=== PATIENT | male | born 1995 | race American Indian/Alaskan Native ===

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

== ENCOUNTER 2018-04-11 02:41 | Emergency (ER) | payer OTHER ==
[2018-04-11] MEDS ORDERED: DiphenhydrAMINE 50 mg/ml Inj IM STA (02:48)
[2018-04-11] MEDS ORDERED: DiphenhydrAMINE 50 mg/ml Inj ONE (02:59)
--- NOTE | 2018-04-11 04:18 | C.PDOC ---
History Of Present Illness 22 year old male presents to the ED complaining of urticarial rash ongoing for the last 2-3 days. Denies any use of new products, new medications, or dietary changes. Reports he felt the hives tonight mostly on his buttocks, lower back, and biceps. Denies any difficulty breathing, difficulty swallowing, fever, chills, wheezing, tongue or lip swelling, throat swelling, or any other symptoms. Time Seen by Provider: 04/11/18 02:45 Chief Complaint (Nursing): Allergic Reaction History Per: Patient History/Exam Limitations: no limitations Onset/Duration Of Symptoms: Days Current Symptoms Are (Timing): Still Present Possible Cause: Unknown Associated Symptoms: Skin Rash, Itching, Redness. denies: Dyspnea Past Medical History Reviewed: Historical Data, Nursing Documentation, Vital Signs Vital Signs: Last Vital Signs Temp 98 F 04/11/18 02:49 Pulse 68 04/11/18 02:49 Resp 20 04/11/18 02:49 BP 116/75 04/11/18 02:49 Pulse Ox 99 04/11/18 02:49 - Medical History PMH: No Chronic Diseases Surgical History: Tonsillectomy Family History: States: No Known Family Hx - Social History Hx Alcohol Use: Yes Hx Substance Use: No - Immunization History Hx Tetanus Toxoid Vaccination: No Hx Influenza Vaccination: Yes Hx Pneumococcal Vaccination: No Review Of Systems Constitutional: Negative for: Fever, Chills ENT: Negative for: Mouth Swelling, Throat Pain, Throat Swelling Cardiovascular: Negative for: Chest Pain Respiratory: Negative for: Shortness of Breath, Wheezing Skin: Positive for: Rash (urticarial rash to buttocks, biceps, lower back ) Physical Exam - Physical Exam Appears: Non-toxic, No Acute Distress Skin: Warm, Dry, Rash (diffused urticarial rash to buttocks and biceps ) Head: Normacephalic Eye(s): bilateral: Normal Inspection, PERRL, EOMI Nose: Normal Oral Mucosa: Moist Tongue: Normal Appearing, No Swelling Lips: Normal Appearing, No Swelling Teeth: Normal Dentition Gingiva: Normal Appearing Throat: Normal, No Erythema Neck: Supple Chest: Symmetrical Cardiovascular: Rhythm Regular Respiratory: Normal Breath Sounds, No Rales, No Rhonchi, No Wheezing, Other (able to talk in complete sentences) Extremity: Bilateral: Atraumatic, Normal Color And Temperature, Normal ROM Neurological/Psych: Oriented x3, Normal Speech Gait: Steady ED Course And Treatment O2 Sat by Pulse Oximetry: 99 (RA) Pulse Ox Interpretation: Normal Medical Decision Making Medical Decision Making: Plan - Benadryl 25mg IM - Prednisone 60mg PO On reeval, patient reports feeling better and the rash/itching has resolved. Patient given Rx for steroids. Instructed to follow up with PMD in 3-5 days. Advised to return to ED if symptoms persist or worsen. Educated on avoiding potential allergens. Disposition Counseled Patient/Family Regarding: Diagnosis, Need For Followup, Rx Given - Disposition Referrals: [facility] at [facility] [Outside] Disposition: HOME/ ROUTINE Disposition Time: 04:16 Condition: IMPROVED Prescriptions: DiphenhydrAMINE [Benadryl] 25 mg PO Q4H #30 cap Prednisone [Deltasone] 40 mg PO DAILY #6 tablet Instructions: Hives (DC) Forms: [facility] (Portuguese), General Discharge Instructions - Clinical Impression Clinical Impression: Allergic urticaria - PA / POTTERY DECORATOR / Resident Statement MD/DO has reviewed & agrees with the documentation as recorded. - Scribe Statement The provider has reviewed the documentation as recorded by the Scribe Abena Jonas All medical record entries made by the Rajendra were at my direction and personally dictated by me. I have reviewed the chart and agree that the record accurately reflects my personal performance of the history, physical exam, medical decision making, and the department course for this patient. I have also personally directed, reviewed, and agree with the discharge instructions and disposition.
[2018-04-11 04:29] VITALS: BP 120/76; PULSE 58; RESP 16; TEMP 98.9
[2018-04-11 05:56] VITALS: O2SAT 99
== END 2018-04-11 04:28 | disposition home or self-care (01) ==
LOC: C.ER 02:41
DX: L50.0 Allergic urticaria (principal)
CPT/HCPCS: 96372; 99284; J1200